=== PATIENT | female | born 1970 | race African-American/Black ===

== ENCOUNTER 2018-05-26 22:32 | Inpatient (IN) | payer OTHER ==
[2018-05-26 22:37] VITALS: BMI 21.3
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
[2018-05-26 23:27] LABS: BASO % 0.8 % (0-2.0); EOS % 3.2 % (0-4.5); HEMATOCRIT 38.8 % (32.4-45.2); LYMPH % 44.3 % (8-40); MCH 30.6 pg (25.7-33.7); MCHC 33.4 g/dl (32.0-36.0); MEAN CELL VOLUME 91.6 fl (80-96); MEAN PLT VOLUME 8.9 fl (7.5-11.1); MONO % 7.8 % (3.8-10.2); NEUT % 43.9 % (42.8-82.8); PLATELET COUNT 221 K/MM3 (134-434); RBC 4.24 M/mm3 (3.60-5.2); RDW 13.2 % (11.6-15.6); WHITE BLOOD COUNT 5.7 K/mm3 (4.0-10.0)
[2018-05-26 23:52] LABS: ALBUMIN 4.5 g/dl (3.4-5.0); ALK PHOS 76 U/L (45-117); ANION GAP 6 MMOL/L (8-16); BILIRUBIN,TOTAL 0.6 mg/dL (0.2-1); BLOOD UREA NITROGEN 17 mg/dL (7-18); CALCIUM 9.3 mg/dL (8.5-10.1); CHLORIDE 105 mmol/L (98-107); CO2 28 mmol/L (21-32); CREATININE 0.9 mg/dL (0.55-1.3); GLUCOSE,RANDOM 103 mg/dL (74-106); POTASSIUM 3.8 mmol/L (3.5-5.1); SGOT/AST 18 U/L (15-37); SGPT/ALT 14 U/L (13-61); SODIUM 139 mmol/L (136-145)
[2018-05-26] MEDS ORDERED: ASPIRIN 325 MG TABLET PO ONE (23:57)
[2018-05-27] MEDS ORDERED: ASPIRIN 325 MG TABLET ONE (00:43)
[2018-05-27] MEDS ORDERED: ALBUTEROL SO4 8 GM HFA INHALER IH PRN (02:40)
[2018-05-27 06:02] LABS: EOS % 3.4 % (0-4.5); HEMATOCRIT 34.8 % (32.4-45.2); HEMOGLOBIN 11.8 GM/dL (10.7-15.3); LYMPH % 50.1 % (8-40); MCH 31.2 pg (25.7-33.7); MCHC 33.9 g/dl (32.0-36.0); MEAN PLT VOLUME 8.9 fl (7.5-11.1); MONO % 7.3 % (3.8-10.2); NEUT % 38.2 % (42.8-82.8); PLATELET COUNT 178 K/MM3 (134-434); RBC 3.78 M/mm3 (3.60-5.2); WHITE BLOOD COUNT 4.1 K/mm3 (4.0-10.0)
[2018-05-27 06:36] LABS: ALBUMIN 3.9 g/dl (3.4-5.0); ALK PHOS 59 U/L (45-117); ANION GAP 7 MMOL/L (8-16); BILIRUBIN,TOTAL 0.8 mg/dL (0.2-1); BLOOD UREA NITROGEN 15 mg/dL (7-18); CALCIUM 9.3 mg/dL (8.5-10.1); CHLORIDE 106 mmol/L (98-107); CO2 26 mmol/L (21-32); CREATININE 0.7 mg/dL (0.55-1.3); GLUCOSE,RANDOM 90 mg/dL (74-106); SGOT/AST 13 U/L (15-37); SGPT/ALT 12 U/L (13-61); SODIUM 139 mmol/L (136-145); TOT PROT 6.9 g/dl (6.4-8.2)
[2018-05-27] MEDS: MULTIVITAMINS (DAILY MVI) TABLET (FP) PO SCH (09:52)
[2018-05-27] MEDS: HEPARIN NA (PORCINE) 5,000 UNITS/ML 1ML VIAL SQ SCH ×2 (09:52→21:59)
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
[2018-05-27 14:59] LABS: CHOLESTEROL 147 mg/dL (50-200); HDL CHOLESTEROL 46 mg/dL (40-60); TRIGLYCERIDES 49 mg/dL (0-150)
--- NOTE | 2018-05-27 16:33 | HP ---
Admitting History and Physical - Past Medical History ...LMP Comment: had hysterectomy ...: No - Smoking History Smoking history: Never smoked Have you smoked in the past 12 months: No Aproximately how many cigarettes per day: 6 - Alcohol/Substance Use Hx Alcohol Use: No Home Medications - Allergies Allergies/Adverse Reactions: Allergies Allergy/AdvReac Type Severity Reaction Status Date / Time Penicillins Allergy Intermediate Rash Verified 05/26/18 22:37 orange AdvReac Itching Verified 05/26/18 22:37 apple AdvReac Uncoded 05/26/18 22:37 banana AdvReac Nausea Uncoded 05/26/18 22:37 - Home Medications Home Medications: Ambulatory Orders Albuterol Sulfate Inhaler - [Ventolin Hfa Inhaler -] 1 - 2 inh PO PRN PRN Ferrous Gluconate [Iron] 256 mg PO DAILY 03/29/16 Multivitamins [Tab-A-Vit -] 1 tab PO DAILY 03/29/16 Physical Examination Vital Signs: Vital Signs Temperature 98.4 F 05/27/18 13:30 Pulse Rate 68 05/27/18 13:30 Respiratory Rate 20 05/27/18 13:30 Blood Pressure 105/49 L 05/27/18 13:30 O2 Sat by Pulse Oximetry (%) 100 05/27/18 13:30 Labs: CBC, BMP 05/27/18 05:24 05/27/18 05:24
--- NOTE | 2018-05-27 19:05 | EKG ---
Test Reason : Blood Pressure : / mmHG Vent. Rate : 103 BPM Atrial Rate : 103 BPM P-R Int : 130 ms QRS Dur : 090 ms QT Int : 358 ms P-R-T Axes : 065 063 058 degrees QTc Int : 468 ms SINUS TACHYCARDIA INCOMPLETE RIGHT BUNDLE BRANCH BLOCK WHEN COMPARED WITH ECG OF 29-MAR-2016 08:44, NO SIGNIFICANT CHANGE WAS FOUND Confirmed by RANDOLPH DILLON MD ([id number]) on 05/27/2018 7:05:23 PM Referred By: Confirmed By:RANDOLPH DILLON MD
--- NOTE | 2018-05-28 08:52 | PN ---
Progress Note, Physician Chief Complaint: No further CP Cardiac enzymes negative x 3 sets. D- dimer negative. Tele: NSR. Denies SOB. No edema - Current Medication List Current Medications: Active Medications Albuterol Sulfate (Ventolin Hfa Inhaler -) 1 puff IH Q4H PRN PRN Reason: SHORT OF BREATH/WHEEZING Heparin Sodium (Porcine) (Heparin -) 5,000 unit SQ BID [facility] Last Admin: 05/27/18 21:59 Dose: 5,000 unit Multivitamins/Minerals/Vitamin C (Tab-A-Vit -) 1 tab PO DAILY [facility] Last Admin: 05/27/18 09:52 Dose: 1 tab - Objective Vital Signs: Vital Signs Temperature 97.9 F 05/28/18 06:00 Pulse Rate 65 05/28/18 06:00 Respiratory Rate 05/28/18 06:00 Blood Pressure 111/65 05/28/18 06:00 O2 Sat by Pulse Oximetry (%) 100 05/27/18 21:00 Constitutional: Yes: No Distress, Calm Eyes: Yes: Conjunctiva Clear Cardiovascular: Yes: Regular Rate and Rhythm Respiratory: Yes: CTA Bilaterally (clear with no rales and no active wheezing.) Gastrointestinal: Yes: Soft (NT.) Edema: No Neurological: Yes: Alert, Oriented ...Motor Strength: WNL Labs: CBC, BMP 05/27/18 05:24 05/27/18 05:24 - ....Imaging EKG: Image Reviewed Assessment/Plan IMP: Atypical CP: negative cardiac enzymes and D-dimer Chronic asthma REC: 1. Echo today for EF assessment and r/o pericardial dz 2. For ETT for further CV risk stratification. If above WNL, no objection to d/c home later today w/ PMD f/u.
[2018-05-28] MEDS: MULTIVITAMINS (DAILY MVI) TABLET (FP) PO SCH (09:41)
[2018-05-28] MEDS: HEPARIN NA (PORCINE) 5,000 UNITS/ML 1ML VIAL SQ SCH ×2 (09:41)
--- NOTE | 2018-05-28 13:56 | ECHO ---
Name: UMU, TYRINA Exam:Adult Echocardiogram Study Date: 05/28/2018 10:11 AM Age: 47 yrs Reason For Study: CHEST PAIN MMode/2D Measurements & Calculations IVSd: 0.61 cm Ao root diam: 2.7 cm LVIDd: 4.6 cm LA dimension: 2.5 cm LVIDs: 3.2 cm LVPWd: 0.72 cm EDV(Teich): 96.7 ml ESV(Teich): 39.7 ml Doppler Measurements & Calculations MV E max zohaib: 50.7 cm/sec TR max zohaib: 196.5 cm/sec MV A max zohaib: 40.7 cm/sec TR max P.5 mmHg MV E/A: 1.2 MV dec time: 0.17 sec Med Peak E' Zohaib: 8.6 cm/sec Med E/e': 5.9 Lat Peak E' Zohaib: 13.0 cm/sec Lat E/e': 3.9 Procedure A complete two-dimensional transthoracic echocardiogram was performed (2D, M-mode, Doppler and color flow Doppler). Left Ventricle The left ventricle is normal in size. Left ventricular systolic function is normal. Ejection Fraction = 55- 60%. No regional wall motion abnormalities noted. Right Ventricle The right ventricle is normal size. The right ventricular systolic function is normal. RV systolic TD I is 15 cm/s. Atria The left atrial size is normal. Right atrial size is normal. Mitral Valve The mitral valve is normal in structure and function. There is no mitral regurgitation noted. Tricuspid Valve The tricuspid valve is normal in structure and function. There is mild tricuspid regurgitation. Right ventricular systolic pressure is normal. Aortic Valve The aortic valve is normal in structure and function. No aortic regurgitation is present. Pulmonic Valve The pulmonic valve is not well visualized. Great Vessels The aortic root is normal size. Pericardium/Pleura There is no pericardial effusion. Interpretation Summary The left ventricle is normal in size. Left ventricular systolic function is normal. No regional wall motion abnormalities noted. Ejection Fraction = 55-60%. The right ventricular systolic function is normal. The left atrial size is normal. Right atrial size is normal. There is mild tricuspid regurgitation. Right ventricular systolic pressure is normal. There is no pericardial effusion. Previous study is not available for comparison Me[address] MD 05/28/2018 01:56 PM
[2018-05-28 15:42] VITALS: BP 100/57; PULSE 75; TEMP 98.7
--- NOTE | 2018-05-28 15:57 | TRE ---
Protocol Name : VIVIAN Max Work Load (METS*10) : 101 Time In Exercise Phase : 00:08:00 Max. Systolic BP : 140 mmHg Max Diastolic BP : 70 mmHg Max Heart Rate : 162 BPM Max Predicted Heart Rate : 171 BPM Attending Physician : DR. DILLON Reason For Termination : Target Heart Rate Achieved Reason for Test : CP Stress Protocol : VIVIAN Rest HR : 108 BPM PeakEx METs : 10.1 METS Arrhythmias : No Arrhythmias Resting ECG : Normal Recovery ECG Response (OLD) : Overall Impression : Normal stress test Chest Pain : No Chest Pain HR Response To Exercise : Normal Overall HR Response To Exercise BP Response To Exercise : Normal Resting BP with Appropriate Response Functional Capacity : Normal Diagnosis : 1. NEGATIVE STRESS TEST 2. APPROPRIATE BLOOD PRESSURE RESPONSE 3. FAIR EXERCISE TOLERANCE AND CAPACITY. PATIENT EXERCISED 8 MIN INTO STAGE 3 VIVIAN WITH ACHIEVEMENT OF 94% MPTHR 4. NO SIGNIFICANT ECG ABNORMALITIES ARE SEEN Confirmed by RANDOLPH DILLON MD ([id number]) on 05/28/2018 3:57:06 PM
== END 2018-05-28 20:02 | disposition home or self-care (01) | DRG 313 ==
LOC: JER 22:32 → JERBED 23:56 → OBSVTOIN 05-27 02:38 → J4W 05-27 13:48
PROVIDERS: ADMIT Internal Medicine; ATTEND Internal Medicine
DX: R07.89 Other chest pain (principal); J45.909 Unspecified asthma, uncomplicated
CPT/HCPCS: 36415; 71045-TC-FY; 80053; 80061; 82550; 83721; 83880; 84443; 84484; 85025; 85379; 93005; 93010; 93017; 93018; 93306-TC; 99285-25; G0378; J1644

== ENCOUNTER 2021-01-28 17:03 | Emergency (ER) | payer OTHER ==
[2021-01-28 17:29] VITALS: BMI 23.6
[2021-01-28] MEDS ORDERED: SODIUM CHLORIDE 0.9% 500 ML INFUS.BAG IV ONE (18:08)
[2021-01-28 18:55] LABS: BASO % 0.7 % (0-2.0); EOS % 1.9 % (0-4.5); HEMATOCRIT 38.4 % (32.4-45.2); HEMOGLOBIN 12.7 GM/dL (10.7-15.3); LYMPH % 33.3 % (8-40); MCH 30.1 pg (25.7-33.7); MCHC 33.1 g/dl (32.0-36.0); MEAN CELL VOLUME 90.9 fl (80-96); MEAN PLT VOLUME 9.3 fl (7.5-11.1); MONO % 5.9 % (3.8-10.2); NEUT % 58.2 % (42.8-82.8); PLATELET COUNT 220 10^3/uL (134-434); RBC 4.23 M/mm3 (3.60-5.2); RDW 13.3 % (11.6-15.6); WHITE BLOOD COUNT 5.4 K/mm3 (4.0-10.0)
[2021-01-28 19:23] LABS: ALBUMIN 4.4 g/dl (3.4-5.0); BLOOD UREA NITROGEN 15.8 mg/dL (7-18)
[2021-01-28 19:26] LABS: CREATININE 0.9 mg/dL (0.55-1.3)
[2021-01-28 19:27] LABS: BILIRUBIN,TOTAL 0.3 mg/dL (0.2-1); TOT PROT 8.5 g/dl (6.4-8.2)
[2021-01-28 20:35] LABS: EPI CELLS 26 /uL (0-25.1); HYALINE CASTS 0 /uL (0-3.1); URINE APPEARANCE CLEAR; URINE BACTERIA 48 /uL (0-1359); URINE BILIRUBIN NEGATIVE (NEGATIVE); URINE COLOR YELLOW; URINE GLUCOSE (UA) NEGATIVE (NEGATIVE); URINE KETONE NEGATIVE (NEGATIVE); URINE LEUK ESTERASE 3+ (NEGATIVE); URINE NITRITE NEGATIVE (NEGATIVE); URINE PROTEIN NEGATIVE (NEGATIVE); URINE RBC 4 /uL (0-23.9); URINE UROBILINOGEN 0.2 mg/dL (0.2-1.0); URINE WBC 44 /uL (0-25.8)
[2021-01-28] MEDS ORDERED: CEFTRIAXONE 500 MG in DEXTROSE 5%-WATER - 50 ML IVPB ONE (20:39)
[2021-01-28 20:51] VITALS: BP 136/71; PULSE 90; TEMP 98.5
[2021-01-28] MEDS ORDERED: DOXYCYCLINE HYCLATE 100 MG CAPSULE PO ONE ×2 (20:52→21:32)
[2021-01-28] MEDS ORDERED: CEFTRIAXONE 1 GM/50 ML BAG ONE (21:32)
== END 2021-01-28 22:42 | disposition home or self-care (01) ==
LOC: JER 17:03
PROC: 3E03329 Introduction of Other Anti-infective into Peripheral Vein, Percutaneous Approach (ICD-10-PCS; principal; 2021-01-28)
PROC: 3E023NZ Introduction of Analgesics, Hypnotics, Sedatives into Muscle, Percutaneous Approach (ICD-10-PCS; 2021-01-28)
PROC: 3E033NZ Introduction of Analgesics, Hypnotics, Sedatives into Peripheral Vein, Percutaneous Approach (ICD-10-PCS; 2021-01-28)
DX: N89.8 Other specified noninflammatory disorders of vagina (principal)
CPT/HCPCS: 36415; 80053; 81003; 85025; 87086; 87186; 87491; 87591; 99284-25

== ENCOUNTER 2021-03-16 10:06 | Emergency (ER) | payer OTHER ==
[2021-03-16 10:25] VITALS: BMI 23.6
[2021-03-16 12:08] LABS: BASO % 1.3 % (0-2.0); EOS % 2.6 % (0-4.5); HEMATOCRIT 38.9 % (32.4-45.2); HEMOGLOBIN 12.9 GM/dL (10.7-15.3); LYMPH % 42.1 % (8-40); MCH 29.8 pg (25.7-33.7); MCHC 33.2 g/dl (32.0-36.0); MEAN CELL VOLUME 89.9 fl (80-96); MEAN PLT VOLUME 9.1 fl (7.5-11.1); MONO % 8.1 % (3.8-10.2); NEUT % 45.9 % (42.8-82.8); PLATELET COUNT 215 10^3/uL (134-434); RBC 4.33 M/mm3 (3.60-5.2); RDW 13.2 % (11.6-15.6); WHITE BLOOD COUNT 4.7 K/mm3 (4.0-10.0)
[2021-03-16 12:29] LABS: CHLORIDE 106 mmol/L (98-107); SODIUM 141 mmol/L (136-145)
[2021-03-16 12:31] LABS: CALCIUM 10.2 mg/dL (8.5-10.1)
[2021-03-16 12:32] LABS: ALBUMIN 4.4 g/dl (3.4-5.0); ANION GAP 5 MMOL/L (8-16); BLOOD UREA NITROGEN 14.1 mg/dL (7-18); CO2 30 mmol/L (21-32); GLUCOSE,RANDOM 101 mg/dL (74-106)
[2021-03-16 12:35] LABS: CREATININE 0.9 mg/dL (0.55-1.3); SGOT/AST 11 U/L (15-37); SGPT/ALT 19 U/L (13-61)
[2021-03-16 12:36] LABS: BILIRUBIN,TOTAL 0.4 mg/dL (0.2-1)
[2021-03-16 12:37] LABS: TOT PROT 8.3 g/dl (6.4-8.2)
[2021-03-16 12:38] LABS: ALK PHOS 81 U/L (45-117)
[2021-03-16 15:19] LABS: HIV INTERPRETATION NEGATIVE (NEGATIVE)
[2021-03-16 17:20] VITALS: BP 110/68; PULSE 78; TEMP 98.2
== END 2021-03-16 16:05 | disposition home or self-care (01) ==
LOC: JER 10:06
DX: R07.9 Chest pain, unspecified (principal)
CPT/HCPCS: 36415; 71046-TC-FY; 80053; 82550; 84484; 85025; 85379; 87389; 93005; 93010; 99284-25

== ENCOUNTER 2022-08-17 23:28 | Emergency (ER) | payer OTHER ==
[2022-08-17 23:36] VITALS: BP 122/62; PULSE 83; RESP 17; TEMP 98.4; BMI 22.6
[2022-08-18] MEDS ORDERED: ACETAMINOPHEN 1000 MG/100 ML BAG IVPB ONE (00:58)
[2022-08-18] MEDS ORDERED: MAG HYDROX/AL HYDROX/SIMETH 30 ML UNIT-DOSE CUP PO ONE (00:58)
[2022-08-18] MEDS ORDERED: FAMOTIDINE 20 MG/50 ML IVPB 20 MG/50 ML MG IVPB ONE ×2 (00:59→01:04)
[2022-08-18] MEDS ORDERED: MAG HYDROX/AL HYDROX/SIMETH 30 ML UNIT-DOSE CUP ONE (01:04)
[2022-08-18] MEDS ORDERED: ACETAMINOPHEN INJECTION 100 ML IVPB ONE (01:25)
[2022-08-18 02:38] LABS: BASO % 0.5 % (0-2.0); EOS % 1.7 % (0-4.5); HEMATOCRIT 36.3 % (32.4-45.2); HEMOGLOBIN 12.3 GM/dL (10.7-15.3); LYMPH % 43.8 % (8-40); MCH 29.9 pg (25.7-33.7); MCHC 33.8 g/dl (32.0-36.0); MEAN CELL VOLUME 88.5 fl (80-96); MEAN PLT VOLUME 8.9 fl (7.5-11.1); MONO % 8.1 % (3.8-10.2); NEUT % 45.9 % (42.8-82.8); PLATELET COUNT 205 10^3/uL (134-434); RDW 12.8 % (11.6-15.6); WHITE BLOOD COUNT 5.1 K/mm3 (4.0-10.0)
[2022-08-18 02:57] LABS: ALBUMIN 3.8 g/dl (3.4-5.0); BLOOD UREA NITROGEN 14.7 mg/dL (7-18); CALCIUM 9.4 mg/dL (8.5-10.1)
[2022-08-18 03:01] LABS: CREATININE 0.7 mg/dL (0.55-1.3)
[2022-08-18 03:02] LABS: TOT PROT 7.4 g/dl (6.4-8.2)
[2022-08-18 03:03] LABS: BILIRUBIN,TOTAL 0.3 mg/dL (0.2-1)
[2022-08-18 03:54] LABS: URINE APPEARANCE CLEAR; URINE BILIRUBIN NEGATIVE (NEGATIVE); URINE COLOR YELLOW; URINE GLUCOSE (UA) NEGATIVE (NEGATIVE); URINE KETONE TRACE (NEGATIVE); URINE LEUK ESTERASE NEGATIVE (NEGATIVE); URINE NITRITE NEGATIVE (NEGATIVE); URINE PROTEIN NEGATIVE (NEGATIVE); URINE UROBILINOGEN 0.2 mg/dL (0.2-1.0)
== END 2022-08-18 04:51 | disposition home or self-care (01) ==
LOC: JER 23:28
PROC: 3E033GC Introduction of Other Therapeutic Substance into Peripheral Vein, Percutaneous Approach (ICD-10-PCS; principal; 2022-08-17)
DX: U07.1 COVID-19 (principal)
CPT/HCPCS: 0241U-QW; 36415; 80053; 81003; 83690; 85025; 87086; 99284-25